=== PATIENT | female | born 1970 | race African-American/Black ===

== ENCOUNTER 2021-11-04 14:10 | Emergency (ER) | payer OTHER ==
[2021-11-04 14:27] VITALS: BP 140/92; PULSE 109; TEMP 98; BMI 45.4
[2021-11-04] MEDS ORDERED: KETOROLAC TROMETHAMINE 30 MG/1 ML VIAL IM ONE (14:47)
[2021-11-04] MEDS ORDERED: KETOROLAC TROMETHAMINE 30 MG/1 ML VIAL ONE (14:53)
== END 2021-11-04 15:08 | disposition home or self-care (01) ==
LOC: JERFT 14:10
PROC: 3E0233Z Introduction of Anti-inflammatory into Muscle, Percutaneous Approach (ICD-10-PCS; principal; 2021-11-04)
DX: G56.20 Lesion of ulnar nerve, unspecified upper limb (principal)
CPT/HCPCS: 99284-25